=== PATIENT | male | born 1965 | race Caucasian/White ===

== ENCOUNTER 2017-05-10 07:00 | Inpatient (IN) | payer OTHER ==
[2017-04-19 13:04] VITALS: Ht 177.8 cm; Wt 85.1 kg
--- NOTE | 2017-04-19 13:33 | PAT Medication Instructions ---
Service Date Apr 19, 2017. Current Home Medication List Naproxen (Aleve), 440 MG PO QD PRN for Pain Omeprazole (Prilosec), 20 MG PO QAM Medication Instructions For Your Scheduled Surgery - Hold the following medications 10 days prior to surgery per your surgeon's instructions: Naproxen (Aleve), 440 MG PO QD PRN for Pain - Take the following medications the morning of surgery with a sip of water: Omeprazole (Prilosec), 20 MG PO QAM If you have any questions please call us at [phone] or [phone] or [phone]
[2017-04-19 14:02] LABS: BASO % 0.9 %; BASO ABS # 0.07 K/uL (0-0.2); EOS % 3.1 %; EOS ABS # 0.25 K/uL (0-0.5); HEMATOCRIT 44.7 % (42-52); HEMOGLOBIN 15.4 g/dL (14.0-18.0); IG# 0.02 K/uL (0.00-0.02); LYMPH % 31.8 %; LYMPH ABS # 2.53 K/uL (1.2-3.4); MEAN CELL VOLUME 90.9 fL (80-100); MEAN CORPUSCULAR HEMOGLOBIN 31.3 pg (25-34); MEAN CORPUSCULAR HGB CONC 34.5 g/dl (32-36); MONO % 6.9 %; MONO ABS # 0.55 K/uL (0.11-0.59); NEUT ABS # 4.53 K/uL (1.4-6.5); PLATELET COUNT 314 K/uL (130-400); RED CELL DISTRIBUTION WIDTH CV 12.7 % (11.5-14.5); WHITE BLOOD COUNT 7.95 K/uL (4.8-10.8)
--- NOTE | 2017-04-19 14:04 | DIAGNOSTIC IMAGING REPORT ---
CHEST 2 VIEWS ROUTINE CLINICAL HISTORY: PAT preoperative evaluation COMPARISON STUDY: 10/07/2010 FINDINGS: The bones soft tissues and hemidiaphragms are normal. The cardiomediastinal silhouette is normal. The lungs are clear. The pulmonary vasculature is normal. IMPRESSION: Negative chest. The above report was generated using voice recognition software. It may contain grammatical, syntax or spelling errors. Electronically signed by: Hardeep Olivares M.D. 04/19/2017 2:03 PM Dictated Date/Time: 04/19/2017 2:02 PM
[2017-04-19 14:05] LABS: HEMOGLOBIN A1C 5.1 % (4.5-5.6)
[2017-04-19 14:16] LABS: PTT PATIENT 27.2 SECONDS (21.0-31.0)
[2017-04-19 15:27] LABS: ALBUMIN 3.9 gm/dl (3.4-5.0); CALCIUM 9.2 mg/dl (8.5-10.1); CREATININE 0.87 mg/dl (0.60-1.40); POTASSIUM 4.3 mmol/L (3.5-5.1)
--- NOTE | 2017-05-01 13:47 | HISTORY & PHYSICAL EXAMINATION ---
DATE OF ADMISSION: 05/10/2017 CHIEF COMPLAINT: Left knee pain. HISTORY OF PRESENT ILLNESS: Mr. Davalos is a 51-year-old male with a multiple year history of left knee pain. He rates his pain at 7/10. He has pain with his daily activities. He has limited standing and walking tolerance. Pain is worse with weightbearing. The patient has had injections and NSAIDS over the years without relief. He has failed conservative treatment and is scheduled for a left knee replacement. PAST MEDICAL HISTORY: Acid reflux. He denies heart disease, diabetes or DVT. PAST SURGICAL HISTORY: Bilateral total hip arthroplasty and bilateral shoulder arthroscopy. SOCIAL HISTORY: The patient drinks one drink per week. He denies tobacco use. He lives in a 2-story home. 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 FAMILY HISTORY: Negative for DVT. MEDICATIONS: Prilosec and Aleve. ALLERGIES: None. REVIEW OF SYSTEMS: See HPI. Ten other systems reviewed, all negative. PHYSICAL EXAMINATION: VITAL SIGNS: Height 5 feet 10 inches and weight 185 pounds. GENERAL: This is a well-developed and well-nourished male, who is alert and oriented x3. Mood and affect are appropriate. HEENT: Normocephalic and atraumatic. Mucous membranes are moist and intact. NECK: Supple without lymphadenopathy. HEART: Regular rate and rhythm without murmurs, rubs or gallops. LUNGS: Clear to auscultation without wheezes or rhonchi. ABDOMEN: Soft and nontender. Bowel sounds are equal and active. EXTREMITIES: No ecchymosis, redness or warmth. He has varus deformity. Range of motion is from 5-110 degrees with no laxity. He has moderate effusion. He has no distal edema. He is neurovascularly intact. X-RAY EXAMINATION: AP and lateral views show joint space narrowing and osteophyte formation. IMPRESSION: Degenerative joint disease, left knee. PLAN: The patient will be admitted for a left total knee arthroplasty as well as a right knee injection intraoperatively. We will plan on aspirin for DVT prophylaxis. The patient is going to have outpatient physical therapy upon discharge.
[~2017-05-10] VITALS: Ht 177.8 cm; Wt 85.1 kg
[2017-05-10] VITALS (8 sets, daily range): BP systolic 117–146; BP diastolic 68–83; PULSE 57–88; TEMP 36.3–36.8; O2SAT 95–100
[2017-05-10] MEDS: TRANEXAMIC ACID INJ 1,000 MG x 2 Bags IV SCH ×4 (06:30→09:08)
[~2017-05-10 07:00] MED LIST: ACETAMINOPHEN 500 MG TAB PO SCH; BUPIVACAINE 0.25% 30 ML VIAL ONE; BUPIVACAINE 0.5 % 5 MG/1 ML PF 10ML VIAL ONE; CEFAZOLIN 2000MG IV PUSH 15 ML IV SCH; CeleBREX 200 MG CAP PO SCH; DEXAMETHASONE 4 MG TAB PO SCH; FAMOTIDINE 20 MG TAB PO SCH; GABAPENTIN 900 MG PO SCH; LACTATED RINGER'S 1000ML 1,000 ML IV SCH; LACTATED RINGER'S 1000ML 500 ML IV SCH; METOCLOPRAMIDE HCL 10 MG TAB PO SCH; NAPR1TAB9 PO; PRLSR20 PO; ROPIVACAINE 5MG/ML 30 ML 150 MG, BUPIVACAINE 0.5% MPF INJ 30 ML, EpINEphrine HCL INJ 0.... INFIL SCH
[2017-05-10] MEDS ORDERED: FENTANYL CITRATE INJ 50 MCG/1 ML 2 ML VIAL ONE (08:21)
[2017-05-10] MEDS ORDERED: MIDAZOLAM HCL 1 MG/ML 2ML VIAL ONE (08:21)
--- NOTE | 2017-05-10 08:37 | History & Physical Bridge Note ---
H&P Re-Evaluation Bridge Note: I have examined the patient, reviewed the History & Physical and in the interval since the performance of the History & Physical I have noted the following changes of clinical significance: No changes noted
[2017-05-10] MEDS ORDERED: ORTHO JOINT ANESTHETIC ONE (08:47)
[2017-05-10] MEDS ORDERED: POVIDONE-IODINE OP SOLN 30 ML BTL ONE (08:47)
[2017-05-10] MEDS ORDERED: BACITRACIN 50000 UNIT VIAL ONE (08:47)
[2017-05-10] MEDS ORDERED: METHYLPREDNISOLONE ACETATE 80 MG/ML VIAL IM STA (09:01)
[2017-05-10] MEDS ORDERED: BUPIVACAINE 0.5 % 5 MG/1 ML MPF 30ML VIAL ONE (09:06)
[2017-05-10] MEDS ORDERED: METHYLPREDNISOLONE ACETATE 80 MG/ML VIAL ONE (09:06)
[2017-05-10] MEDS ORDERED: BUPIVACAINE 0.5 % 5 MG/1 ML MPF 30ML VIAL INFIL ONE (09:15)
[2017-05-10] MEDS ORDERED: ATROPINE SULFATE 0.1 MG/ML 5ML SYR IV PRN (09:30)
[2017-05-10] MEDS ORDERED: KETOROLAC TROMETHAMINE 30 MG/ML VIAL IV. PRN (09:30)
[2017-05-10] MEDS ORDERED: PHENYLEPHRINE 100MCG/ML 5ML SYR IV PRN (09:30)
[2017-05-10] MEDS ORDERED: HYDROmorphone INJ 2 MG/ML SYR/VIAL IV PRN (09:30)
[2017-05-10] MEDS ORDERED: ONDANSETRON INJ 2 MG/ML 2 ML VIAL IV PRN ×2 (09:30→10:45)
[2017-05-10] MEDS ORDERED: EpHEDrine SULFATE INJ 50 MG/ML AMP IV PRN (09:30)
[2017-05-10] MEDS ORDERED: PROPOFOL IV EMULSION 10 MG/ML 20 ML VIAL IV ONE (10:36)
--- NOTE | 2017-05-10 10:37 | [facility] Post Operative Brief Note ---
Immediate Operative Summary Operative Date May 10, 2017. Pre-Operative Diagnosis bilat oa Post-Operative Diagnosis same Procedure(s) Performed l tka r inj Surgeon memo Spool Worker Surgeon(s) josé miguel Estimated Blood Loss 10cc Findings Consistent with Post-Op Diagnosis Specimens bone Anesthesia Type MAC Spinal Regional Complication(s) none Disposition Accompanied Pt To Recover: no Disposition: Recovery Room / PACU
[2017-05-10] MEDS ORDERED: MAGNESIUM HYDROXIDE SUSP 30 ML UDC PO PRN (10:45)
[2017-05-10] MEDS ORDERED: MoRPHine SULFATE 4 MG/ML 1 ML CARP\\VIAL IV PRN (10:45)
[2017-05-10] MEDS ORDERED: BISACODYL 10 MG SUPP PR PRN (10:45)
[2017-05-10] MEDS ORDERED: TAMSULOSIN HCL 0.4 MG CAP PO PRN (10:45)
[2017-05-10] MEDS ORDERED: ZOLPIDEM TARTRATE 5 MG TAB PO PRN (10:45)
[2017-05-10] MEDS ORDERED: METOCLOPRAMIDE HCL INJ 5 MG/ML 2 ML VIAL IV PRN (10:45)
[2017-05-10] MEDS ORDERED: SOD PHOSPHATE/SOD BIPHOSPHATE ENEMA 132 ML BTL PR PRN (10:45)
--- NOTE | 2017-05-10 10:58 | OPERATIVE REPORT ---
DATE OF OPERATION: 05/10/2017 PREOPERATIVE DIAGNOSIS: Osteoarthritis, left knee. POSTOPERATIVE DIAGNOSIS: Osteoarthritis, left knee. PROCEDURE: Left total knee arthroplasty, cementless. SURGEON: Dr. Cabrales. RADAR ENGINEER: KYLIE Rodriguez ANESTHESIA: Spinal. COMPLICATIONS: None. OPERATION AND FINDINGS: Following induction of spinal anesthesia, the patient's left leg was prepped and draped in the usual sterile manner. Limb was exsanguinated with an Esmarch bandage and tourniquet was inflated to 350 mmHg. A longitudinal incision was made anteriorly. Subcutaneous tissue was sharply dissected. Electrocautery was used for hemostasis. Prepatellar bursa was incised and median parapatellar incision was performed. Patella was everted and the knee was flexed. Fat pad was removed to aid in visualization and the anterior and posterior cruciate ligaments were removed. The medial face of the tibia was cleared of soft tissue first with a Bovie and a Nicole elevator. This tissue was retracted posteriorly using a blunt Hohmann. A Cardenas retractor was used to expose the synovium above on the anterior aspect of the femur and this was removed down to bone. The PSI guide was placed on the distal femur and two pins were placed anteriorly and kept in position and two additional pins were placed distally and removed. The distal femoral cutting block was placed in position and the distal femoral cut was used in the +0 setting. Next, the cutting block was removed and the femoral size 5 block was placed in the distal end of the femur. Care was taken to ensure appropriate external rotation and feeler gauge was used to ensure no notching would occur. The femoral block was centered on the distal femur and in the medial and lateral direction and was fixed using two bone screws. The gold pins were then removed. The oscillating saw was used to create the bone cuts and the distal femoral cutting block was removed and the reciprocating saw was used to further trim the femoral cuts as well as a deep in the area for the trochlear groove. Next, posterior condyle remnants were removed. Following this, a meniscal clamp and knife were utilized to remove the anterior portion of both medial and lateral meniscus. The proximal tibia PSI guide was placed into position and the proximal tibial cutting guide was screwed into position. The extra medullary alignment guide was utilized to ensure appropriate alignment. The proximal tibia was cut and the proximal tibial cutting block was removed and this bone fragment was removed. The appropriate guide was used to perform the notch cut on the distal femur and a lamina it assistant and a cochlear knife were utilized to finish both medial and lateral meniscectomies to remove any remnants of the posterior or anterior cruciate ligaments. Following this, the distal femoral component was impacted into position and blunt Arya was used to sublux the tibia anteriorly. The proximal tibia was sized and a size 5 tibial tray was chosen as the size to be used. This was put into position and appropriate external rotation and a double check with extramedullary alignment guide was performed. The canal for the tibial stem was prepared first with a 17 mm drill and then the punch and a mallet and the trial tibial poly was placed. A tibial poly 16 was chosen the size to be used. It was brought to extension and the patella was prepared with the patellar reamer. A patella size 36 cemented component was chosen the size to be used. The trial component was placed and knee was taken through a full range of motion and there was found to be no lateral subluxation of the tibia. No lateral release was required. The trials were all removed. The final components were obtained and assembled. The wound was irrigated and closed over a Hemovac drain. A #1 Vicryl was used to close the extensor mechanism. Subcutaneous tissues closed using 0 Dexon. Skin was closed with margareth. Sterile dressing of Adaptic, 4 x 4's, sterile Webril, and Kevan was applied. The patient tolerated the procedure well. Due to the complex nature of the procedure, the entire surgery was performed with the operational assistance of KYLIE Rodriguez. The assistant professor of biochemistry, under direct supervision, was involved in the actual performance of all aspects of the surgical procedure including hemostasis, tissue retraction and incision, instrument management, patient positioning, and wound closure. DISPOSITION: Recovery room stable. I attest to the content of the Intraoperative Record and any orders documented therein. Any exception s are noted below.
--- NOTE | 2017-05-10 11:43 | DIAGNOSTIC IMAGING REPORT ---
LEFT KNEE 2 VIEWS History: Left total knee arthroplasty. Degenerative arthritis. Postop. FINDINGS: The patient is status post a left total knee arthroplasty. The hardware is intact. No fracture or dislocation. Surgical drains are in place. IMPRESSION: Left total knee arthroplasty. No evidence for hardware complication. Electronically signed by: Jevon Jacinto M.D. 05/10/2017 11:41 AM Dictated Date/Time: 05/10/2017 11:41 AM
--- NOTE | 2017-05-10 12:02 | Anesthesiology Progress Note ---
Anesthesia Post Op Note Date & Time May 10, 2017 at 12:02 Vital Signs Pain Intensity: 0 Vital Signs Past 12 Hours Date Time Temp Pulse Resp B/P (MAP) Pulse Ox O2 Delivery O2 Flow Rate FiO2 05/10/17 11:52 61 17 98 05/10/17 11:52 59 17 05/10/17 11:51 119/65 05/10/17 11:47 62 10 05/10/17 11:47 60 10 99 05/10/17 11:46 119/67 05/10/17 11:42 65 12 05/10/17 11:42 67 12 98 05/10/17 11:41 120/65 05/10/17 11:37 62 14 98 05/10/17 11:37 61 14 05/10/17 11:36 36.6 118/69 05/10/17 11:35 61 15 98 05/10/17 11:35 60 15 05/10/17 11:31 117/71 05/10/17 11:30 68 14 99 05/10/17 11:30 66 14 05/10/17 11:26 120/64 05/10/17 11:25 62 20 05/10/17 11:25 66 20 99 05/10/17 11:21 121/65 05/10/17 11:20 66 22 05/10/17 11:20 Nasal Cannula 2 05/10/17 11:20 65 22 100 05/10/17 11:16 120/61 05/10/17 11:15 68 19 116/64 99 05/10/17 11:15 66 19 05/10/17 11:10 36.3 72 16 128/70 98 Oxymask 4 05/10/17 08:08 36.7 57 18 119/75 Room Air 95 Notes Mental Status: alert / awake / arousable, participated in evaluation Pt Amnestic to Procedure: Yes Nausea / Vomiting: adequately controlled Pain: adequately controlled Airway Patency, RR, SpO2: stable & adequate BP & HR: stable & adequate Hydration State: stable & adequate Anesthetic Complications: no major complications apparent
[2017-05-10] MEDS: FERROUS GLUCONATE 324 MG TAB PO SCH ×2 (12:30→18:40)
[2017-05-10] MEDS: D5W AND 1/2NSS + 20MEQ KCL 1,000 ML IV SCH (16:49)
[2017-05-10] MEDS ORDERED: TRANEXAMIC ACID INJ 1,000 MG in SODIUM CHLORIDE 0.9% 100ML 100 ML IV SCH (17:30)
[2017-05-10] MEDS: CEFAZOLIN IV 2,000 MG in SYRINGE 0 ML IV SCH (18:40)
[2017-05-10] MEDS ORDERED: SENNA 8.6 MG TAB PO SCH (21:00)
[2017-05-10] MEDS: ASPIRIN 325 MG ECTAB PO SCH (21:15)
[2017-05-10] MEDS: DOCUSATE SODIUM 100 MG CAP PO SCH (21:15)
[2017-05-10] MEDS: CeleBREX 200 MG CAP PO SCH (21:15)
[2017-05-10] MEDS: ACETAMINOPHEN 500 MG TAB PO SCH (21:16)
[2017-05-11] MEDS: OXYCODONE HCL IR 5 MG TAB (IMMEDIATE RELEASE) PO PRN ×4 (00:08→13:59)
[2017-05-11] MEDS: D5W AND 1/2NSS + 20MEQ KCL 1,000 ML IV SCH ×2 (02:03→11:23)
[2017-05-11] MEDS: CEFAZOLIN IV 2,000 MG in SYRINGE 0 ML IV SCH (02:03)
[2017-05-11 02:43] VITALS: BP 123/76; PULSE 68; TEMP 37; O2SAT 95
[2017-05-11] MEDS: ACETAMINOPHEN 500 MG TAB PO SCH ×2 (05:48→13:59)
[2017-05-11 06:13] LABS: HEMATOCRIT 37.1 % (42-52); MEAN CELL VOLUME 90.7 fL (80-100); MEAN CORPUSCULAR HEMOGLOBIN 31.8 pg (25-34); MEAN PLATELET VOLUME 8.9 fL (7.4-10.4); PLATELET COUNT 291 K/uL (130-400); RED CELL DISTRIBUTION WIDTH CV 12.5 % (11.5-14.5); RED CELL DISTRIBUTION WIDTH SD 41.6 fL (36.4-46.3); WHITE BLOOD COUNT 18.71 K/uL (4.8-10.8)
[2017-05-11 06:55] LABS: CALCIUM 8.7 mg/dl (8.5-10.1); CREATININE 0.78 mg/dl (0.60-1.40); POTASSIUM 4.3 mmol/L (3.5-5.1)
[2017-05-11 07:50] VITALS: BP 121/71; PULSE 56; TEMP 36.6; O2SAT 96
--- NOTE | 2017-05-11 08:19 | Orthopedic Progress Note ---
Orthopedic Progress Note Date of Service May 11, 2017. Subjective Post OP Day: 1 Reports: feeling well, Denies: complaints Objective calves soft nontender, N/V intact, dressing C/D/I, A&O x3, toes mobile, hemovac drainage (125) Date Time Temp Pulse Resp B/P (MAP) Pulse Ox O2 Delivery O2 Flow Rate FiO2 05/11/17 02:43 37.0 68 16 123/76 (92) 95 Room Air 05/11/17 00:00 Room Air 05/10/17 23:20 36.7 66 16 131/68 (89) 96 Room Air 05/10/17 18:56 36.8 88 18 117/72 (87) 96 Room Air 05/10/17 16:00 Room Air 05/10/17 15:06 36.5 78 18 117/79 (92) 95 Room Air 05/10/17 14:25 36.5 80 20 146/83 (104) 95 Room Air 05/10/17 13:10 36.3 67 19 126/81 (96) 98 Nasal Cannula 2.0 05/10/17 12:35 36.3 69 19 131/82 (98) 98 Nasal Cannula 2.0 05/10/17 12:05 36.4 63 18 120/73 (89) 100 Nasal Cannula 3.0 05/10/17 12:05 99 Nasal Cannula 2.0 05/10/17 12:05 100 Nasal Cannula 2.0 05/10/17 11:52 61 17 98 05/10/17 11:52 59 17 05/10/17 11:51 119/65 05/10/17 11:47 62 10 05/10/17 11:47 60 10 99 05/10/17 11:46 119/67 05/10/17 11:42 65 12 05/10/17 11:42 67 12 98 05/10/17 11:41 120/65 05/10/17 11:37 62 14 98 05/10/17 11:37 61 14 05/10/17 11:36 36.6 118/69 05/10/17 11:35 61 15 98 05/10/17 11:35 60 15 05/10/17 11:31 117/71 05/10/17 11:30 68 14 99 05/10/17 11:30 66 14 05/10/17 11:26 120/64 3/22/18 11:25 62 20 05/10/17 11:25 66 20 99 05/10/17 11:21 121/65 05/10/17 11:20 66 22 05/10/17 11:20 Nasal Cannula 2 05/10/17 11:20 65 22 100 05/10/17 11:16 120/61 05/10/17 11:15 68 19 116/64 99 05/10/17 11:15 66 19 05/10/17 11:10 36.3 72 16 128/70 98 Oxymask 4 Laboratory Results 24 Hours: Test 05/11/17 05:43 Hematocrit 37.1 % Hemoglobin 13.0 g/dL Assessment & Plan Assessment: POD 1 s/p Left TKA/ Right knee injection Plan: PT/OT Plan for Services ADDENDUM: Pt progressing well with PT. Pain controlled. Plan for dc to home today with [facility]. They will remove drain/dressing Sunday. Inhouse Planning Pain Management: Celebrex, Morphine, PO Tylenol, Oxy IR DVT Prophylaxis: TEDs, SCDs, ASA Discharge Planning Discharge Planning: home with home health
--- NOTE | 2017-05-11 08:24 | Discharge Instructions ---
Discharge Instructions Date of Service May 11, 2017. Admission Reason for Admission: Bilateral Knee Osteoarthritis Discharge Discharge Diagnosis / Problem: Bilateral Knee Osteoarthritis Discharge Goals Goal(s): Decrease discomfort, Improve function, Increase independence Activity Recommendations Activity Limitations: per Instructions/Follow-up section Weightbearing Status: Left weightbearing (as tolerated) . Instructions / Follow-Up Instructions / Follow-Up ACTIVITY RECOMMENDATIONS: SELF CARE INSTRUCTIONS AFTER TOTAL KNEE REPLACEMENT A. You may need to continue a physical therapy program after discharge from the hospital. There are several options available to you. Your doctor will assist you in selecting the best one for you. 1. An out-patient facility 2 to 3 times a week for therapy or home therapy. 2. Continue working on all exercises taught to you in the hospital. Your goals should be to increase bending of your knee to 90 degrees and beyond and to fully straighten your knee. B. You may progress at your own pace from walking with a walker or crutches to a cane; then to no assistive devices. C. Make walking a part of your daily routine. Be up as much as comfortable with rest periods throughout the day. Rest with leg elevation is very important. Use the ice wrap frequently for the first 3-4 weeks. D. There are no restrictions on activities. You may ride in a car, shop, participate in multimedia journalist and all social activities. E. Wear the long elastic stockings (GOMEZ hose) 20 hours a day for 2 weeks after surgery. They can be removed several times a day for laundering and for a bath. F. You may shower, no tub baths until cleared by your doctor. SPECIAL CARE INSTRUCTIONS: VERY IMPORTANT TO READ AND REVIEW A. There are a few signs you need to watch for after you are home. Call [facility] if you notice any of the followin. Increased severe knee pain. Some pain is expected especially when you exercise. 2. Increased swelling in your leg or knee; pain or swelling of the calf muscle in either lower leg. 3. Any fluid drainage from the incision. 4. Shortness of breath or chest pain. B. Please call [facility] at if you have any concerns or questions about your operation or recovery. The doctor or his nurse will return your call promptly. C. You must take antibiotics before dental work, bladder, bowel or other surgery. Your doctor will provide you with a permanent care to carry describing this precaution. IMPORTANT: * REMEMBER TO TAKE ASPIRIN, 325 MG, TWICE DAILY FOR 4 WEEKS UNLESS OTHERWISE DIRECTED. THIS IS YOUR BLOOD THINNER. * HIGH RISK PATIENTS MAY BE PRESCRIBED A STRONGER BLOOD THINNER. THIS WILL BE PROVIDED AT DISCHARGE. * CALL IF INCREASED PAIN, REDNESS, DRAINAGE OR FEVER GREATER THAT 101. * WEAR GOMEZ HOSE 20 HOURS PER DAY FOR 2 WEEKS. * Zip Skin Closure You have a Zipline Closure System. As noted below, this keeps your incision closed. Change the dressing daily. Keep the wound covered with a dressing as it has the potential to snag on your clothing. The Zipline will remain on for a total of 2 weeks. Do not remove it! You will be given instructions by nursing staff at the time of discharge to care for your Zip Closure System. This devices uses plastic straps to keep your incision closed and protected throughout your recovery. If you have any questions please refer to these instructions first. FOLLOW UP VISIT: If appointment is not already scheduled: Please call [facility] to make a follow-up appointment for 2 weeks after your surgery at . Current Hospital Diet Patient's current hospital diet: Regular Diet Discharge Diet Recommended Diet: Regular Diet Procedures Procedures Performed: l tka r inj Pending Studies Studies pending at discharge: no Laboratory Results Hemoglobin A1c Test 04/19/17 13:43 Range/Units Estimated Average Glucose 100 mg/dl Hemoglobin A1c 5.1 4.5-5.6 % Medical Emergencies . Who to Call and When: Medical Emergencies: If at any time you feel your situation is an emergency, please call 911 immediately. . Non-Emergent Contact Non-Emergency issues call your: Surgeon Call Non-Emergent contact if: temperature is above 101.5, your pain is not controlled, your pain is worsening, wound has increased drainage, wound has increased redness . "Provider Documentation" section prepared by Michael Johnson. . [place] Drug Monitoring Program Search Results: patient reviewed within database, no issues identified
[2017-05-11] MEDS: DOCUSATE SODIUM 100 MG CAP PO SCH (08:52)
[2017-05-11] MEDS: ASPIRIN 325 MG ECTAB PO SCH (08:57)
[2017-05-11] MEDS ORDERED: PANTOprazole SOD 40 MG TAB PO SCH (09:00)
[2017-05-11] MEDS ORDERED: MULTIVITAMIN TAB PO SCH (09:00)
[2017-05-11] MEDS: CeleBREX 200 MG CAP PO SCH (09:30)
[2017-05-11] MEDS: FERROUS GLUCONATE 324 MG TAB PO SCH ×2 (09:31→12:57)
[2017-05-11 12:15] VITALS: BP 134/86; PULSE 68; TEMP 36.6; O2SAT 96
[2017-05-11] MEDS ORDERED: SENN-61 PO (12:17)
[2017-05-11] MEDS ORDERED: ACET-24 PO (12:17)
[2017-05-11] MEDS ORDERED: ASPEC325 PO (12:17)
[2017-05-11] MEDS ORDERED: CLB200 PO (12:17)
[2017-05-11] MEDS ORDERED: RXC5 PO (12:17)
[2017-05-11 13:03] VITALS: BP 134/86; PULSE 68; TEMP 36.6; O2SAT 96
== END 2017-05-11 14:40 | disposition home health service (06) | DRG 470 ==
LOC: C.ACU 07:00 → C.3E 10:54 → ENRESERV 11:40
PROC: 0SRD0JA Replacement of Left Knee Joint with Synthetic Substitute, Uncemented, Open Approach (ICD-10-PCS; principal; 2017-05-10 09:30)
DX: M17.12 Unilateral primary osteoarthritis, left knee (principal); K21.9 Gastro-esophageal reflux disease without esophagitis; Z79.899 Other long term (current) drug therapy; Z96.643 Presence of artificial hip joint, bilateral; Z72.89 Other problems related to lifestyle

== ENCOUNTER 2017-06-07 06:56 | Inpatient (IN) | payer OTHER ==
[2017-05-15 09:58] VITALS: BMI 27.0
--- NOTE | 2017-05-31 14:57 | HISTORY & PHYSICAL EXAMINATION ---
DATE OF ADMISSION: 06/07/2017 CHIEF COMPLAINT: Right knee pain. HISTORY OF PRESENT ILLNESS: Mr. Davalos is a 52 year-old male with multiple year history of right knee pain. He rates his pain as 7/10. He has pain with his daily activities. He has limited standing and walking tolerance. Pain is worse with weightbearing. Patient has had NSAIDs, injections without relief. He has recently had left knee replacement and is now scheduled to proceed with the right side. PAST MEDICAL HISTORY: Acid reflux. He denies heart disease, diabetes or DVT. PAST SURGICAL HISTORY: Bilateral total hip arthroplasty, bilateral shoulder arthroplasty and left TKA. SOCIAL HISTORY: Patient drinks 1 drink per month. He denies tobacco use. He lives in a 2-story home. He is and works as a machine paint mixer at [employer] FAMILY HISTORY: Negative for DVT. MEDICATIONS: Prilosec and Aleve. ALLERGIES: CHLORHEXIDINE WIPES. REVIEW OF SYSTEMS: See HPI. Ten other systems reviewed, all negative. PHYSICAL EXAMINATION: VITAL SIGNS: Height 5 feet 10 inches, weight 185 pounds. GENERAL: This is a well-developed, well-nourished male who is alert and oriented x3. Mood and affect are appropriate. HEENT: Normocephalic, atraumatic. Mucous membranes are moist and intact. NECK: Supple without lymphadenopathy. HEART: Regular rate and rhythm without murmurs, rubs or gallops. LUNGS: Clear to auscultation without wheezes or rhonchi. ABDOMEN: Soft and nontender. Bowel sounds are equal and active. EXTREMITIES: No ecchymosis, redness or warmth. Thigh and calf are soft and nontender. He has varus deformity. Range of motion is from 5-110 degrees with no laxity. He is neurovascularly intact with +5/5 strength. X-RAY EXAMINATION: AP and lateral views show joint space narrowing and osteophyte formation. IMPRESSION: Degenerative joint disease, right knee. PLAN: Patient will be admitted for a right total knee arthroplasty. We will plan on aspirin for DVT prophylaxis. Patient will have outpatient physical therapy upon discharge. [facility] SYSTEMAngela
[2017-06-07] VITALS (9 sets, daily range): BP systolic 110–124; BP diastolic 66–79; PULSE 57–84; TEMP 36.5–36.9; O2SAT 94–96; Ht 177.8 cm; Wt 85.1 kg
[~2017-06-07] VITALS: Ht 177.8 cm; Wt 85.1 kg
[2017-06-07] MEDS: TRANEXAMIC ACID INJ 1,000 MG x 2 Bags IV SCH ×4 (06:30→09:15)
[~2017-06-07 06:56] MED LIST changes: +ACET-1256 PO; +ASPECOTC PO; -BUPIVACAINE 0.25% 30 ML VIAL ONE; -BUPIVACAINE 0.5 % 5 MG/1 ML PF 10ML VIAL ONE; +CLB/200 PO; +FENTANYL CITRATE INJ 50 MCG/1 ML 2 ML VIAL ONE; -LACTATED RINGER'S 1000ML 500 ML IV SCH; +MIDAZOLAM HCL 1 MG/ML 2ML VIAL ONE; -NAPR1TAB9 PO; +OXYC1TAB3 PO; +SENN-65 PO
[2017-06-07] MEDS ORDERED: BUPIVACAINE 0.25% 30 ML VIAL ONE (08:25)
[2017-06-07] MEDS ORDERED: BUPIVACAINE 0.5 % 5 MG/1 ML PF 10ML VIAL ONE (08:25)
[2017-06-07] MEDS ORDERED: POVIDONE-IODINE OP SOLN 30 ML BTL ONE (08:46)
[2017-06-07] MEDS ORDERED: BACITRACIN 50000 UNIT VIAL ONE (08:46)
[2017-06-07] MEDS ORDERED: ORTHO JOINT ANESTHETIC ONE (08:46)
[2017-06-07] MEDS ORDERED: LIDOCAINE HCL 2% 2 ML VIAL (20MG/ML) ONE (09:49)
[2017-06-07] MEDS ORDERED: PROPOFOL IV EMULSION 10 MG/ML 20 ML VIAL IV ONE (09:49)
[2017-06-07] MEDS ORDERED: ONDANSETRON INJ 2 MG/ML 2 ML VIAL ONE (09:49)
[2017-06-07] MEDS ORDERED: PHENYLEPHRINE HCL INJ 10 MG/ML VIAL ONE (09:52)
[2017-06-07] MEDS ORDERED: MIDAZOLAM HCL 1 MG/ML 2ML VIAL ONE (09:53)
[2017-06-07] MEDS ORDERED: SODIUM CHLORIDE 0.9% INJ 10 ML VIAL ONE (10:00)
[2017-06-07] MEDS ORDERED: EpHEDrine SULFATE INJ 50 MG/ML AMP ONE (10:00)
--- NOTE | 2017-06-07 10:31 | [facility] Post Operative Brief Note ---
Immediate Operative Summary Operative Date Jun 07, 2017. Pre-Operative Diagnosis DEGENERATIVE JOINT DISEASE Post-Operative Diagnosis same Procedure(s) Performed cementless tka Surgeon DR. ALEJANDRA Flat Surfacer Jewel Surgeon(s) Marine NAVARRO PAC Estimated Blood Loss 10cc Findings Consistent with Post-Op Diagnosis Specimens bone Anesthesia Type MAC Spinal Regional Complication(s) none Disposition Accompanied Pt To Recover: no Disposition: Recovery Room / PACU
[2017-06-07] MEDS ORDERED: ATROPINE SULFATE 0.1 MG/ML 5ML SYR IV PRN (11:00)
[2017-06-07] MEDS ORDERED: EpHEDrine SULFATE INJ 50 MG/ML AMP IV PRN (11:00)
[2017-06-07] MEDS ORDERED: CEFAZOLIN IV 2,000 MG in DEXTROSE 5% 50ML 50 ML IV SCH (11:15)
[2017-06-07] MEDS ORDERED: METOCLOPRAMIDE HCL INJ 5 MG/ML 2 ML VIAL IV PRN (11:15)
[2017-06-07] MEDS ORDERED: OXYCODONE HCL IR 5 MG TAB (IMMEDIATE RELEASE) PO PRN (11:15)
[2017-06-07] MEDS ORDERED: ALUMINUM/MAGNESIUM/SIMETH (MAALOX MAX) 30 ML UDC PO PRN (11:15)
[2017-06-07] MEDS ORDERED: MAGNESIUM HYDROXIDE SUSP 30 ML UDC PO PRN (11:15)
[2017-06-07] MEDS ORDERED: ONDANSETRON INJ 2 MG/ML 2 ML VIAL IV PRN (11:15)
[2017-06-07] MEDS ORDERED: ZOLPIDEM TARTRATE 5 MG TAB PO PRN (11:15)
[2017-06-07] MEDS ORDERED: MoRPHine SULFATE 2 MG/ML CARP IV PRN ×2 (11:15→12:15)
[2017-06-07] MEDS ORDERED: TAMSULOSIN HCL 0.4 MG CAP PO PRN (11:15)
--- NOTE | 2017-06-07 11:28 | DIAGNOSTIC IMAGING REPORT ---
RIGHT KNEE 2 VIEWS History: Right total knee arthroplasty. Degenerative arthritis. Postop. FINDINGS: The patient is status post a right total knee arthroplasty. The hardware is intact. No fracture or dislocation. Surgical drains are in place. IMPRESSION: Right total knee arthroplasty. No evidence for hardware complication. Electronically signed by: Jevon Jacinto M.D. 06/07/2017 11:26 AM Dictated Date/Time: 06/07/2017 11:26 AM
[2017-06-07] MEDS ORDERED: MoRPHine SULFATE 4 MG/ML 1 ML CARP\\VIAL IV PRN ×2 (12:15)
[2017-06-07] MEDS ORDERED: MoRPHine SULFATE 10 MG/ML CARP/VIAL IV PRN (12:15)
--- NOTE | 2017-06-07 12:44 | OPERATIVE REPORT ---
DATE OF OPERATION: 06/07/2017 PREOPERATIVE DIAGNOSIS: Osteoarthritis, right knee. POSTOPERATIVE DIAGNOSIS: Osteoarthritis, right knee. PROCEDURE: Right total knee arthroplasty, cementless. SURGEON: Dr. Cabrales. MANAGER [employer]ION C[employer]: Adams Moreno PA-C. ANESTHESIA: Spinal. COMPLICATIONS: None. IMPLANTS USED: Femoral size 5, cementless tibial size 5, cementless tibial poly 11, patella size 36 cemented. OPERATION AND FINDINGS: Following induction of spinal anesthesia, the patient's right leg was prepped and draped in the usual sterile manner. Limb was exsanguinated with an Esmarch bandage and tourniquet was inflated to 350 mmHg. A longitudinal incision was made anteriorly. Subcutaneous tissue was sharply dissected. Electrocautery was used for hemostasis. Prepatellar bursa was incised and median parapatellar incision was performed. Patella was everted and the knee was flexed. Fat pad was removed to aid in visualization and the anterior and posterior cruciate ligaments were removed. The medial face of the tibia was cleared of soft tissue first with a Bovie and a Nicole elevator. This tissue was retracted posteriorly using a blunt Hohmann. A Cardenas retractor was used to expose the synovium above on the anterior aspect of the femur and this was removed down to bone. The PSI guide was placed on the distal femur and two pins were placed anteriorly and kept in position and two additional pins were placed distally and removed. The distal femoral cutting block was placed in position and the distal femoral cut was used in the +0 setting. Next, the cutting block was removed and the femoral size 5 block was placed in the distal end of the femur. Care was taken to ensure appropriate external rotation and feeler gauge was used to ensure no notching would occur. The femoral block was centered on the distal femur and in the medial and lateral direction and was fixed using two bone screws. The gold pins were then removed. The oscillating saw was used to create the bone cuts and the distal femoral cutting block was removed and the reciprocating saw was used to further trim the femoral cuts as well as a deep in the area for the trochlear groove. Next, posterior condyle remnants were removed. Following this, a meniscal clamp and knife were utilized to remove the anterior portion of both medial and lateral meniscus. The proximal tibia PSI guide was placed into position and the proximal tibial cutting guide was screwed into position. The extramedullary alignment guide was utilized to ensure appropriate alignment. The proximal tibia was cut and the proximal tibial cutting block was removed and this bone fragment was removed. The appropriate guide was used to perform the notch cut on the distal femur and a lamina blacktop spreader and a cochlear knife were utilized to finish both medial and lateral meniscectomies to remove any remnants of the posterior or anterior cruciate ligaments. Following this, the distal femoral component was impacted into position and blunt Arya was used to sublux the tibia anteriorly. The proximal tibia was sized and a cementless tibial size 5 tibial tray was chosen as the size to be used. This was put into position and appropriate external rotation and a double check with extramedullary alignment guide was performed. The canal for the tibial stem was prepared first with a 17 mm drill and then the punch and a mallet and the trial tibial poly was placed. A cementless tibial poly size 11 was chosen the size to be used. It was brought to extension and the patella was prepared with the patellar reamer. A patella size 36 cemented component was chosen the size to be used. The trial component was placed and knee was taken through a full range of motion and there was found to be no lateral subluxation of the tibia. No lateral release was required. The trials were all removed. The final components were obtained and assembled. The wound was irrigated and closed over a Hemovac drain. #1 Vicryl was used to close the extensor mechanism. Subcutaneous tissues closed using 0 Dexon. Skin was closed with margareth. Sterile dressing of Adaptic, 4 x 4's, sterile Webril, and Kevan was applied. The patient tolerated the procedure well. Due to the complex nature of the procedure, the entire surgery was performed with the operational assistance of Adams Moreno PA-C. The design assistant, under direct supervision, was involved in the actual performance of all aspects of the surgical procedure including hemostasis, tissue retraction and incision, instrument management, patient positioning, and wound closure. DISPOSITION: Recovery room, stable. I attest to the content of the Intraoperative Record and any orders documented therein. Any exception s are noted below.
--- NOTE | 2017-06-07 13:59 | Anesthesiology Progress Note ---
Anesthesia Post Op Note Date & Time Jun 07, 2017 at 13:59 Vital Signs Pain Intensity: 0 Vital Signs Past 12 Hours Date Time Temp Pulse Resp B/P (MAP) Pulse Ox O2 Delivery O2 Flow Rate FiO2 06/07/17 13:25 79 18 122/70 (87) 96 06/07/17 12:25 95 Nasal Cannula 2.0 06/07/17 12:24 95 Nasal Cannula 2.0 06/07/17 12:22 36.5 73 15 118/72 (87) 96 2.0 06/07/17 12:00 69 15 121/65 97 Nasal Cannula 2 06/07/17 11:45 75 13 117/54 97 Nasal Cannula 2 06/07/17 11:30 36.2 61 13 116/56 98 Nasal Cannula 2 06/07/17 11:20 60 11 99/59 100 Oxymask 10 06/07/17 11:10 36.0 68 16 116/67 99 Oxymask 10 06/07/17 07:47 36.6 57 20 124/79 94 Room Air Notes Mental Status: alert / awake / arousable, participated in evaluation Pt Amnestic to Procedure: Yes Nausea / Vomiting: adequately controlled Pain: adequately controlled Airway Patency, RR, SpO2: stable & adequate BP & HR: stable & adequate Hydration State: stable & adequate Neuraxial Anesthesia: was administered, sensory block is resolving Anesthetic Complications: no major complications apparent
[2017-06-07] MEDS: KETOROLAC TROMETHAMINE 30 MG/ML VIAL IV. SCH ×2 (14:07→19:46)
[2017-06-07] MEDS: D5W AND 1/2NSS + 20MEQ KCL 1,000 ML IV SCH ×2 (14:08→23:13)
[2017-06-07] MEDS: FERROUS GLUCONATE 324 MG TAB PO SCH (18:11)
[2017-06-07] MEDS: CEFAZOLIN IV 2,000 MG in SYRINGE 0 ML IV SCH (18:11)
[2017-06-07] MEDS: DOCUSATE SODIUM 100 MG CAP PO SCH (21:39)
[2017-06-07] MEDS: ACETAMINOPHEN 500 MG TAB PO SCH (21:39)
[2017-06-07] MEDS: ASPIRIN 325 MG ECTAB PO SCH (21:39)
[2017-06-08] MEDS: KETOROLAC TROMETHAMINE 30 MG/ML VIAL IV. SCH ×2 (01:48→07:40)
[2017-06-08] MEDS: CEFAZOLIN IV 2,000 MG in SYRINGE 0 ML IV SCH (01:49)
[2017-06-08 03:42] VITALS: BP 112/62; PULSE 54; TEMP 36.6; O2SAT 99
[2017-06-08] MEDS: ACETAMINOPHEN 500 MG TAB PO SCH (05:31)
[2017-06-08 07:10] VITALS: BP 122/73; PULSE 55; TEMP 36.6; O2SAT 98
[2017-06-08] MEDS ORDERED: DEXAMETHASONE INJ 10 MG in SYRINGE 0 ML IV SCH (07:30)
[2017-06-08 07:34] LABS: HEMATOCRIT 34.8 % (42-52); HEMOGLOBIN 11.5 g/dL (14.0-18.0); MEAN CELL VOLUME 93.5 fL (80-100); MEAN CORPUSCULAR HEMOGLOBIN 30.9 pg (25-34); MEAN PLATELET VOLUME 8.7 fL (7.4-10.4); PLATELET COUNT 270 K/uL (130-400); RED CELL DISTRIBUTION WIDTH CV 13.3 % (11.5-14.5); RED CELL DISTRIBUTION WIDTH SD 45.5 fL (36.4-46.3); WHITE BLOOD COUNT 12.08 K/uL (4.8-10.8)
[2017-06-08 07:45] VITALS: O2SAT 98
--- NOTE | 2017-06-08 07:58 | Anesthesiology Progress Note ---
Anesthesia Post Op Note Date & Time Jun 08, 2017 at 07:58 Vital Signs Pain Intensity: 0.0 Vital Signs Past 12 Hours Date Time Temp Pulse Resp B/P (MAP) Pulse Ox O2 Delivery O2 Flow Rate FiO2 06/08/17 07:10 36.6 55 16 122/73 (89) 98 Room Air 06/08/17 03:42 36.6 54 14 112/62 (79) 99 Room Air 06/07/17 23:15 Room Air 06/07/17 23:14 36.6 57 14 120/66 (84) 94 Room Air Notes Mental Status: alert / awake / arousable, participated in evaluation Pt Amnestic to Procedure: Yes Nausea / Vomiting: adequately controlled Pain: adequately controlled Airway Patency, RR, SpO2: stable & adequate BP & HR: stable & adequate Hydration State: stable & adequate Anesthetic Complications: no major complications apparent
--- NOTE | 2017-06-08 07:59 | Orthopedic Progress Note ---
Orthopedic Progress Note Date of Service Jun 08, 2017. Subjective Post OP Day: 1 Reports: feeling well Objective N/V intact, dressing C/D/I (Hemovac in place), toes mobile Date Time Temp Pulse Resp B/P (MAP) Pulse Ox O2 Delivery O2 Flow Rate FiO2 06/08/17 07:10 36.6 55 16 122/73 (89) 98 Room Air 06/08/17 03:42 36.6 54 14 112/62 (79) 99 Room Air 06/07/17 23:15 Room Air 06/07/17 23:14 36.6 57 14 120/66 (84) 94 Room Air 06/07/17 19:23 36.9 84 16 110/72 (85) 95 Room Air 06/07/17 15:20 95 Room Air 06/07/17 15:18 36.9 76 16 124/66 (85) 95 Room Air 06/07/17 14:25 77 18 121/73 (89) 96 06/07/17 13:25 79 18 122/70 (87) 96 06/07/17 12:25 95 Nasal Cannula 2.0 06/07/17 12:24 95 Nasal Cannula 2.0 06/07/17 12:22 36.5 73 15 118/72 (87) 96 2.0 06/07/17 12:00 69 15 121/65 97 Nasal Cannula 2 06/07/17 11:45 75 13 117/54 97 Nasal Cannula 2 06/07/17 11:30 36.2 61 13 116/56 98 Nasal Cannula 2 06/07/17 11:20 60 11 99/59 100 Oxymask 10 06/07/17 11:10 36.0 68 16 116/67 99 Oxymask 10 Laboratory Results 24 Hours: Test 06/08/17 06:58 Hematocrit 34.8 % Hemoglobin 11.5 g/dL Additional Notes: PRP pending Assessment & Plan Assessment: 52 yo male stable POD #1 s/p right TKA Plan: 1. Med management 2. DVT prophylaxis- ASA, SCDs 3. PT/OT 4. D/C planning- home w/ HH
[2017-06-08] MEDS ORDERED: ACET-24 PO (08:01)
[2017-06-08] MEDS ORDERED: RXC5 PO (08:01)
--- NOTE | 2017-06-08 08:02 | Discharge Instructions ---
Discharge Instructions Date of Service Jun 08, 2017. Admission Reason for Admission: Right Knee Osteoarthritis Discharge Discharge Diagnosis / Problem: Right knee arthritis Discharge Goals Goal(s): Decrease discomfort, Improve function Activity Recommendations Activity Limitations: as noted below Weightbearing Status: Right weightbearing (as tolerated) . Instructions / Follow-Up Instructions / Follow-Up ACTIVITY RECOMMENDATIONS: SELF CARE INSTRUCTIONS AFTER TOTAL KNEE REPLACEMENT A. You may need to continue a physical therapy program after discharge from the hospital. There are several options available to you. Your doctor will assist you in selecting the best one for you. 1. An out-patient facility 2 to 3 times a week for therapy or home therapy. 2. Continue working on all exercises taught to you in the hospital. Your goals should be to increase bending of your knee to 90 degrees and beyond and to fully straighten your knee. B. You may progress at your own pace from walking with a walker or crutches to a cane; then to no assistive devices. C. Make walking a part of your daily routine. Be up as much as comfortable with rest periods throughout the day. Rest with leg elevation is very important. Use the ice wrap frequently for the first 3-4 weeks. D. There are no restrictions on activities. You may ride in a car, shop, participate in container coordinator and all social activities. E. Wear the long elastic stockings (GOMEZ hose) 20 hours a day for 2 weeks after surgery. They can be removed several times a day for laundering and for a bath. F. You may shower, no tub baths until cleared by your doctor. SPECIAL CARE INSTRUCTIONS: VERY IMPORTANT TO READ AND REVIEW A. There are a few signs you need to watch for after you are home. Call [facility] if you notice any of the followin. Increased severe knee pain. Some pain is expected especially when you exercise. 2. Increased swelling in your leg or knee; pain or swelling of the calf muscle in either lower leg. 3. Any fluid drainage from the incision. 4. Shortness of breath or chest pain. B. Please call [facility] at if you have any concerns or questions about your operation or recovery. The doctor or his nurse will return your call promptly. C. You must take antibiotics before dental work, bladder, bowel or other surgery. Your doctor will provide you with a permanent care to carry describing this precaution. IMPORTANT: * REMEMBER TO TAKE ASPIRIN, 81 MG, TWICE DAILY FOR 4 WEEKS UNLESS OTHERWISE DIRECTED. THIS IS YOUR BLOOD THINNER. * HIGH RISK PATIENTS MAY BE PRESCRIBED A STRONGER BLOOD THINNER. THIS WILL BE PROVIDED AT DISCHARGE. * CALL IF INCREASED PAIN, REDNESS, DRAINAGE OR FEVER GREATER THAT 101. * WEAR GOMEZ HOSE 20 HOURS PER DAY FOR 2 WEEKS. * MAINTAIN ZIPLINE CLOSURE UNTIL FOLLOW-UP WITH MD. FOLLOW UP VISIT: If appointment is not already scheduled: Please call [facility] to make a follow-up appointment for 2 weeks after your surgery at . Current Hospital Diet Patient's current hospital diet: Regular Diet Discharge Diet Recommended Diet: Regular Diet Procedures Procedures Performed: Cementless Right Total Knee Arthroplasty Pending Studies Studies pending at discharge: no Laboratory Results Hemoglobin A1c Test 04/19/17 13:43 Range/Units Estimated Average Glucose 100 mg/dl Hemoglobin A1c 5.1 4.5-5.6 % Medical Emergencies . Who to Call and When: Medical Emergencies: If at any time you feel your situation is an emergency, please call 911 immediately. . Non-Emergent Contact Non-Emergency issues call your: Surgeon Call Non-Emergent contact if: temperature is above 101.5, your pain is not controlled, wound has increased drainage, wound has increased redness . "Provider Documentation" section prepared by Adams Moreno PA-C. . [facility] Monitoring Program Search Results: patient reviewed within database, no issues identified
[2017-06-08 08:04] LABS: CALCIUM 8.6 mg/dl (8.5-10.1); CREATININE 0.75 mg/dl (0.60-1.40); POTASSIUM 4.1 mmol/L (3.5-5.1)
[2017-06-08 08:38] VITALS: BP 122/73; PULSE 55; TEMP 36.6; O2SAT 98
[2017-06-08] MEDS: FERROUS GLUCONATE 324 MG TAB PO SCH ×2 (08:45→12:32)
[2017-06-08] MEDS: DOCUSATE SODIUM 100 MG CAP PO SCH (08:45)
[2017-06-08] MEDS: ASPIRIN 325 MG ECTAB PO SCH (08:45)
[2017-06-08] MEDS ORDERED: PANTOprazole SOD 40 MG TAB PO SCH (09:00)
[2017-06-08] MEDS ORDERED: MULTIVITAMIN TAB PO SCH (09:00)
[2017-06-08] MEDS: D5W AND 1/2NSS + 20MEQ KCL 1,000 ML IV SCH (09:58)
[2017-06-08 11:18] VITALS: BP 123/76; PULSE 72; TEMP 36.9; O2SAT 95
[2017-06-08] MEDS ORDERED: CeleBREX 200 MG CAP PO SCH (21:00)
== END 2017-06-08 13:15 | disposition home health service (06) | DRG 470 ==
LOC: C.ACU 06:56 → C.MSW 11:13 → ENRESERV 12:00
PROC: 0SRC0JA Replacement of Right Knee Joint with Synthetic Substitute, Uncemented, Open Approach (ICD-10-PCS; principal; 2017-06-07 09:30)
DX: M17.11 Unilateral primary osteoarthritis, right knee (principal); K21.9 Gastro-esophageal reflux disease without esophagitis; Z96.652 Presence of left artificial knee joint; Z96.643 Presence of artificial hip joint, bilateral; Z96.611 Presence of right artificial shoulder joint; Z96.612 Presence of left artificial shoulder joint; Z88.3 Allergy status to other anti-infective agents